=== PATIENT | female | born 1960 | race Caucasian/White ===

== ENCOUNTER 2017-09-11 06:08 | Day surgery (SDC) | payer OTHER ==
[2017-09-11] MEDS ORDERED: PROPOFOL 20 ML ×2 (07:47→11:28)
[2017-09-11] MEDS ORDERED: MIDAZOLAM 1 MG/ML 2 ML INJ (07:48)
[2017-09-11] MEDS ORDERED: FENTAnyl 50 MCG/ML VIAL (07:48)
== END 2017-09-11 10:39 | disposition home or self-care (01) ==
LOC: GIL 06:08
DX: K92.1 Melena (principal); D12.5 Benign neoplasm of sigmoid colon; K64.8 Other hemorrhoids; I12.9 Hypertensive chronic kidney disease with stage 1 through stage 4 chronic kidney disease, or unspecified chronic kidney disease; N18.9 Chronic kidney disease, unspecified; E11.9 Type 2 diabetes mellitus without complications; J45.909 Unspecified asthma, uncomplicated
CPT/HCPCS: 45380; 82962; 88305